=== PATIENT | male | born 1980 | race Caucasian/White ===

== ENCOUNTER 2022-09-26 14:12 | Inpatient (IN) | payer OTHER ==
[~2022-09-26] VITALS: Ht 172.7 cm; Wt 81.2 kg
--- NOTE | 2022-09-26 15:30 | NUR ---
MS RN ADMITTING NOTES ADMITTED THIS 42 YO MALE TO UNIT AT 1510 VIA GURNEY, DIRECT ADMIT FROM [facility], WITH A DX OF OSTEOMYELITIS. PT IS AOX4 AND ABLE TO MAKE NEEDS FULLY KNOWN. ORIENTED TO ROOM AND STAFF. VS TAKEN, STABLE, AFEBRILE, RECORDED. PT ON ROOM AIR, TOLERATING WELL, WITH NO ACUTE RESPIRATORY DISTRESS NOTED. IV ACCESS NOTED ON LEFT HAND G#20 SALINE LOCKED, PATENT, INTACT, AND FLUSHING WELL. LUNGS CLEAR ON AUSCULTATION BILATERALLY,. ABDOMEN SOFT, NON-TENDER AND NON-DISTENDED WITH + BOWEL SOUNDS ON ALL FOUR QUADRANTS, PHOTOS OF SKIN ISSUES TAKEN AND FILED IN THE CHART- WOUND CONSULT AND WELLNESS PROGRAM MANAGER CONSULT STARTED. DENIES PAIN NOR DISCOMFORT AT THIS MOMENT. BELONGINGS ALL ACCOUNTED FOR AND FORM SIGNED. SAFETY MEASURES IN PLACE: BED IN LOWEST AND LOCKED POSITION, SIDE RAILS UP X2, TRAY TABLE AND CALL LIGHT WITHIN EASY REACH. WILL CONTINUE TO MONITOR PT.,
[2022-09-26] MEDS ORDERED: BUPR1FIL3 SL (15:38)
[2022-09-26] MEDS ORDERED: NALO4SPR (15:38)
[2022-09-26] MEDS ORDERED: LORA-259 PO (15:58)
[2022-09-26] MEDS ORDERED: GABA600T12 PO (15:58)
[2022-09-26] MEDS ORDERED: NAPR-1009 PO (15:58)
[2022-09-26 16:00] VITALS: BP 124/73
[2022-09-26] MEDS ORDERED: MAGNESIUM HYDROXIDE 30 ML UDC PO PRN (16:00)
[2022-09-26] MEDS ORDERED: Z GUARD REMEDY 4 OZ OINT TP PRN (16:00)
[2022-09-26] MEDS ORDERED: MAG HYDROX/AL HYDROX/SIMETH 30 ML UDC PO PRN (16:00)
[2022-09-26] MEDS ORDERED: ACETAMINOPHEN 325 MG TABLET PO PRN (16:00)
[2022-09-26] MEDS ORDERED: NALOXONE HCL 4 MG SPRAY NS PRN (16:00)
[2022-09-26] MEDS ORDERED: DEXTROSE 50%-WATER 50 ML DISP.SYRIN IV PRN (16:00)
[2022-09-26] MEDS ORDERED: ONDANSETRON HCL/PF 4 MG/2 ML VIAL IVP PRN (16:00)
[2022-09-26] MEDS: INSULIN REGULAR, HUMAN 100 UNIT/ML 3 ML VIAL SQ PRN (17:20)
[2022-09-26] MEDS: BLOOD SUGAR DIAGNOSTIC 1 EACH STRIP VI SCH ×2 (17:20→22:00)
[2022-09-26] MEDS ORDERED: OXYC-128 PO (17:27)
[2022-09-26] MEDS ORDERED: MELA5TAB PO (17:27)
[2022-09-26] MEDS ORDERED: THIA100T74 PO (17:27)
[2022-09-26] MEDS ORDERED: BISA5TAB10 PO (17:27)
[2022-09-26] MEDS ORDERED: CYCL5TAB PO (17:27)
[2022-09-26] MEDS ORDERED: FOLI0.4T6 PO (17:27)
[2022-09-26] MEDS ORDERED: ACET-868 PO (17:27)
[2022-09-26] MEDS ORDERED: MULT-447 PO (17:27)
[2022-09-26] MEDS ORDERED: DOCU-141 PO (17:27)
[2022-09-26] MEDS ORDERED: LIDO30AD10 TP (17:27)
[2022-09-26] MEDS ORDERED: ONDA4TAB5 PO (17:27)
[2022-09-26] MEDS ORDERED: MORP15TA PO (17:27)
--- NOTE | 2022-09-26 19:15 | NUR ---
MS RN CLOSING NOTES PATIENT IN BED, ASLEEP, EASILY AWAKEN, PATIENT DENIED PAIN OR DISCOMFORT, ON ROOM AIR BREATHING WITHOUT ANY DIFFICULTY. STILL WITH THE SAME IV ACCESS. DUE MEDS GIVEN, ALL NEEDS MET. SAFETY MEASURES MAINTAINED: BED IN LOWEST AND LOCKED POSITION, SIDE RAILS X2, TRAY TABLE AND CALL LIGHT WITHIN EASY REACH. WILL ENDORSE TO TECHNICAL BUSINESS SYSTEMS ANALYST NURSE.
--- NOTE | 2022-09-26 19:41 | NUR ---
MS RN OPENING NOTES: RECEIVED PATIENT SLEEP IN BED COMFORTABLY, AROUSABLE TO VERBAL STIMULI, BED IN LOW POSITION CALL LIGHTS WITHIN REACH, NO COMPLAIN OF PAIN AND DISCOMFORT AT THIS TIME, ON ROOM AIR SATURATING WELL, PATIENT IS A/O X4 ABLE TO MAKE NEEDS KNOWN, ON BED REST, IV LINE ON LEFT HAND#20SL, PATIENT KEPT CLEAN AND DRY ALL NEEDS MET WILL CONTINUE TO MONITOR.
[2022-09-26 20:00] VITALS: BP 130/75
[2022-09-26 20:17] VITALS: BP 130/75
[2022-09-26] MEDS: HYDROCODONE/APAP 5/325MG TABLET PO PRN (20:36)
--- NOTE | 2022-09-26 23:14 | NUR ---
RN NOTES: PATIENT REFUSED BLOOD SUGAR CHECK EXPLAIN RISK AND BENEFITS, PER PATIENT STATED "I AM NOT DIABETIC NO" PATIENT STILL REFUSED, WILL CONTINUE TO MONITOR.
[2022-09-27] MEDS: HYDROCODONE/APAP 5/325MG TABLET PO PRN ×4 (00:37→21:21)
--- NOTE | 2022-09-27 06:16 | NUR ---
MS RN CLOSING NOTES: PATIENT SLEEP IN BED COMFORTABLY, AROUSABLE TO VERBAL STIMULI, BED IN LOW POSITION CALL LIGHTS WITHIN REACH, NO COMPLAIN OF PAIN AND DISCOMFORT AT THIS TIME, ON ROOM AIR SATURATING WELL, PATIENT IS A/OX4 AMBULATORY FROM BED TO WHEEL CHAIR, AND ABLE TO MAKE NEEDS KNOWN, PATIENT KEPT CLEAN AND DRY ALL NEEDS MET ENDORSE TO INCOMING SHIFT.
[2022-09-27] MEDS: BLOOD SUGAR DIAGNOSTIC 1 EACH STRIP VI SCH ×4 (06:34→22:04)
--- NOTE | 2022-09-27 06:34 | NUR ---
RN NOTES; BLOOD SUGAR-96 NO INSULIN GIVEN PER SLIDING SCALE,
[2022-09-27 07:02] LABS: BASOPHILS # (AUTO) 0.1 K/uL (0.0-0.2); BASOPHILS % (AUTO) 1.7 % (0.0-2.0); EOSINOPHILS % (AUTO) 7.8 % (0.0-6.0); HEMATOCRIT 40 % (39-51); HEMOGLOBIN 13.5 g/dL (13.5-17.5); LYMPHOCYTES # (AUTO) 2.3 K/uL (0.8-4.8); LYMPHOCYTES % (AUTO) 44.8 % (20.0-44.0); MEAN CORPUSCULAR HGB CONC 34 g/dl (31.0-36.0); MEAN CORPUSCULAR VOLUME 88 fL (80-96); MONOCYTES # (AUTO) 0.5 K/uL (0.1-1.30); MONOCYTES % (AUTO) 9.2 % (2.0-12.0); NEUTROPHILS # (AUTO) 1.9 K/uL (1.8-8.9); NEUTROPHILS % (AUTO) 36.5 % (43.0-81.0); PLATELET COUNT (AUTO) 306 K/uL (150-450); RED BLOOD CELL COUNT(AUTO) 4.56 MIL/uL (4.5-6.0); WHITE BLOOD COUNT (AUTO) 5.2 K/uL (4.3-11.0)
[2022-09-27 07:20] LABS: CALCIUM, SERUM 8.7 mg/dL (8.5-10.1); CREATININE 0.6 mg/dL (0.6-1.3); MAGNESIUM 2.1 mg/dL (1.8-2.4); PHOSPHORUS 4.1 mg/dL (2.5-4.9); POTASSIUM 3.8 mmol/L (3.5-5.1)
--- NOTE | 2022-09-27 07:30 | NUR ---
MS RN OPENING NOTE RECEIVED PATIENT ASLEEP IN BED. PT A/O x4, ABLE TO MAKE NEEDS KNOWN. ON ROOM AIR, NO S/S OF RESPIRATORY DISTRESS. IV ACCESS ON L HAND 20 G SALINE LOCK. PT IS ON BRP, USES URINAL. NO S/S OF PAIN OR DISCOMFORT. SAFETY MEASURES IN PLACE: BED LOCKED AND IN LOWEST POSITION, HOB ELEVATED, SIDE RAILS UP x2, CALL LIGHT WITHIN REACH. WILL CONTINUE TO MONITOR.
--- NOTE | 2022-09-27 07:50 | NUR ---
WOUND CARE CONSULT: PT PRESENTS WITH LARGE AREA OF SCARRING TO LEFT SIDE OF BACK AND FLANK AREA WELL SWELLING WITH DRY ESCHAR TO RT HEEL AND SUTURES TO RT ANKLE AREA, PRESENT ON ADMISSION. DR CALLE CALLED FOR DPM CONSULT. DISCUSSED SKIN PROTECTION WITH NURSING STAFF. MD IN AGREEMENT WITH PLAN OF CARE.
[2022-09-27 08:00] VITALS: BP 129/83
[2022-09-27] MEDS ORDERED: VANCOMYCIN 1.25 GM in IV D5W 250 ML IV ONE (08:00)
--- NOTE | 2022-09-27 08:05 | NUR ---
RN MS NOTES DR. CALLE AT BEDSIDE, EXAMINING PT.
[2022-09-27] MEDS: ENOXAPARIN SODIUM 40 MG/0.4 ML DISP.SYRIN SQ SCH (08:39)
[2022-09-27] MEDS ORDERED: Medication Not On Formulary EA (Buprenorphine Hcl/Naloxone Hcl (Suboxone 8 Mg-2 Mg Sl Fi SL SCH (09:00)
[2022-09-27] MEDS ORDERED: BISACODYL (5 MG) 5 MG TABLET.DR PO PRN (09:30)
[2022-09-27] MEDS ORDERED: LORAZEPAM 1 MG TABLET PO PRN (09:30)
[2022-09-27] MEDS ORDERED: LIDOCAINE 5% (PATCH) 1 EA PATCH TP PRN (09:30)
[2022-09-27] MEDS ORDERED: ONDANSETRON 4 MG TAB.RAPDIS PO PRN (10:00)
[2022-09-27] MEDS ORDERED: CYCLOBENZAPRINE 10 MG TABLET PO PRN (10:00)
--- NOTE | 2022-09-27 10:36 | NUR ---
RN NOTES PT REQUESTED TO SHOWER. DR. MACIAS INFORMED. PER LINDA MEIER TO SHOWER.
[2022-09-27] MEDS: GLUCERNA SHAKE 237 ML CAN PO SCH (10:46)
[2022-09-27] MEDS: PROSOURCE / PROSTAT (PYXIS) 30 ML UDC GT SCH ×2 (10:46→16:10)
--- NOTE | 2022-09-27 11:00 | NUR ---
SS Consult: SSS consult requested for homelessness and Drug dependence referrals. The pt. is a 42-year-old male pt. who was admitted to Med Surg due to right heel pain per EMR. Upon SS consult, the pt. is Alert & Oriented x 4 and makes good eye contact. The pt. appears unkempt. Pt. has euthymic mood & affect. Pt.s speech is clear and thought process is WNL. Pt. remained calm & cooperative throughout interview. Pt. denies SI/HI and states denies hallucinations. SW explored pt.s living situation. Per pt. he is has been experiencing homelessness for the past 10 -15 years. SW provided pt. with [place] [facility] resources and referred him to [facility] for reh[facility]. Pt. stated he will follow up with resources. SW explored pt.s drug & ETOH use. Pt. states he uses all kinds of drugs and refused to go into detail regarding frequency and amount. SW provided pt. with drug and alcohol dependence referrals and pt. accepted them. The pt. stated he uses a wheelchair and is independent with all his ADLs. Plan: SW provided pt. with the following homeless and addiction resources and pt. accepted them. Pt. signed homeless waiver and it was placed in the pt.s chart. SW provided pt. with bus TAP card and bus route to [facility] and pt. accepted it. [facility] list : [facility]; [place] Adult WSP site; [place] Adult WSP site; and [facility] Adult WSP site; instruction to call 211 for availability. Year-round shelters: [facility] [address] [place] [address] ; [facility] [address] [place] [address]; [facility] Nzuivnh9744 [facility]. [facility] [address] Hygiene: [facility]: [address] ; [facility] [address] [facility] ; [facility] [address] . Food Resources: [facility] [facility] at [facility]- [address] [place]; Meet Each Need with Dignity ([facility]) [address] Do; [facility] [address] [facility]; [facility] [address] [facility]. Mental Health resources provided: [facility] [address] [place] [address] ; [facility] [address] [facility] [address], [place], [place] [id number] ; [facility] [address] [facility] [place], [place] [id number] ; [facility] [place], [place] [phone] Healthcare Clinics: [facility] [address] [facility], [address] [place]. [place] ; [facility] [address] [facility] [address] [place] [address]; [facility] [place] [address] [facility] [place] [address] [phone] Counseling--Outpatient [facility] [address] [facility], [address] [place], [place] [address] (Specializes in in-depth psychotherapy for emotional distress: anxiety, depression, interpersonal conflicts, life transitions, childhood abuse) [facility] [address] [place] [address] (Assist with solving problem marital difficulties, separation & divorce, aging parents, & grief, chronic & terminal illness) [facility] [address] [place] [address] (Deal with loss & grief, anxiety, marital difficulties) Homebound/Mental Health Services [address] [place], [place] [address] (Provide in-home mental services to people who are incapable of leaving their homes) [facility] Senior Service/Resource Center [address] [place] [address] [facility] [address] [place] [address] PSYCHIATRIC OUTPATIENT SERVICES [facility] Partial Hospitalization and Intensive Outpatient Program (Managed Care and [place] Only)[address] [facility] [phone] [facility] Partial Hospitalization and Outpatient [address] [place], [place] [phone] [facility] [place] Hbx[address] [facility]. [address] [place], [place] [phone] [facility] Partial Hospitalization and Outpatient Ilewuzb65892 [facility], [phone] Substance Abuse resources provided included: [facility] Substance Abuse Self-Helpline ([facility]) ; [facility] [address] [facility]. [place] [phone] ; [facility] [address] [facility] [address] ; [facility] Rehabilitation Program [address] [address] ; [facility] [address] [facility] [address] ; [facility] Treatment [facility] [address] [facility] [address] ; [facility] [place] [address] [facility] [address] ; [facility] Substance Abuse Helpline([facility] ; [facility] ; [facility] [place]; [facility] [place]; [facility] [place]; [facility] [place]; [facility]; [facility]; [facility]. [place]; Alcoholics Anonymous -[facility]; Do-Zavr-[place] ; Marijuana Anonymous -[facility]; Narcotics Anonymous www.na.org;
[2022-09-27] MEDS: GABAPENTIN 300 MG CAPSULE PO SCH ×3 (12:17→20:44)
--- NOTE | 2022-09-27 14:50 | NUR ---
RN MS NOTES PT ON SUBOXONE, PER PT, HE ALREADY EXHAUSTED HIS CURRENT SUPPLY, PHARMACY DOES NOT CARRY MED, DR. MACIAS INFORMED, ORDERED TO CANCEL MED.
[2022-09-27] MEDS: DOCUSATE SODIUM 100 MG CAPSULE PO SCH (16:10)
[2022-09-27] MEDS: NAPROXEN 500 MG TABLET PO SCH (16:10)
[2022-09-27] MEDS: VANCOMYCIN 1 GM in IV D5W 250 ML IV SCH (16:23)
--- NOTE | 2022-09-27 18:34 | NUR ---
MS RN CLOSING NOTES PATIENT AWAKE IN BED, A/Ox4 ABLE TO MAKE NEEDS KNOWN. STABLE ON ROOM AIR, NO S/S OF RESPIRATORY DISTRESS. IV ACCESS ON LEFT HAND 20G SL. PAIN UNDER CONTROL W/ PRN MEDS. SAFETY MEASURES MAINTAINED: BED LOCKED AND IN LOWEST POSITION, HOB ELEVATED, SIDE RAILS UPx2, CALL LIGHT WITHIN REACH. WILL ENDORSE TO NEXT SHIFT.
--- NOTE | 2022-09-27 19:58 | NUR ---
MS JAN INITIAL NOTES Received report from am nurse and checked the patient , I saw him in bed lying down sleeping but arouse to his name and touch. Denies any pain or any discomfort. Heplock gauge 20 patent and intact. kept him warm and comfortable at all times. Patient able to use wheel chair and able to needs know. Bed in low with side rails X2 up and lock in position . Place call light at each. will continue monitoring.
[2022-09-27 20:00] VITALS: BP 136/98
--- NOTE | 2022-09-27 21:27 | NUR ---
ms jeet notes patient woke up and complained of pain on his hand 01/13 , [place] tablet given po as ordered. will continue monitoring.
[2022-09-27] MEDS: *INSULIN REGULAR(HUMULIN R)HUM 100 UNIT/ML VIAL SQ PRN (22:12)
--- NOTE | 2022-09-27 22:15 | NUR ---
MS JAN NOTES BLOOD SUGAR CHECKED DONE 132, 2 UNITS OF INSULIN GIVEN DINA SQ ORDERED. NO SIGNS OF HYPO/HYPER GLYCEMIA NOTED. SNACKS ALSO SERVED. KEPT HIM WARM AND COMFORTABLE AT ALL TIMES. PLACE CALL LIGHT AT REACH WILL CONTINUE MONITORING.
--- NOTE | 2022-09-28 | NUR ---
ms jeet notes pt sleeping comfortably in bed without any distress or any discomfort noted will continue monitoring. place call light at reach.
[2022-09-28] MEDS: VANCOMYCIN 1 GM in IV D5W 250 ML IV SCH ×2 (00:43→09:14)
[2022-09-28] MEDS: INSULIN REGULAR, HUMAN 100 UNIT/ML 3 ML VIAL SQ PRN (06:30)
[2022-09-28] MEDS: BLOOD SUGAR DIAGNOSTIC 1 EACH STRIP VI SCH ×2 (06:30→12:04)
[2022-09-28] MEDS: HYDROCODONE/APAP 5/325MG TABLET PO PRN ×3 (06:33→15:13)
--- NOTE | 2022-09-28 06:55 | NUR ---
MS CLINICAL INFORMATICS MANAGER CLOSING NOTES PT BACK TO REST AFTER [place] TABLET GIVEN PO FOR GENERALIZED PAIN. BLOOD SUGAR CHECKED DONE 84 NO INSULIN DUE AT THIS TIME. NO SIGNS OF HYPO GLYCEMIA NOTED. ALL DUE MEDS GIVEN AND ALL NEEDS MET. STILL WAITING FOR BLOOD DRAW PLUS THE VANCO TROUGH S ORDERED. WILL ENDORSE TO AM NURSE FOR CONTINUITY OF CARE.
--- NOTE | 2022-09-28 07:31 | NUR ---
MEDSURSoumya RN OPENING NOTE RECEIVED PATIENT ASLEEP IN BED. PT A/O x4, ABLE TO MAKE NEEDS KNOWN. ON ROOM AIR, NO S/S OF RESPIRATORY DISTRESS. IV ACCESS ON L HAND 20 G SALINE LOCK. ON IVATB WITH NO A/R NOTED. PT IS ON BRP, USES URINAL. NO S/S OF PAIN OR DISCOMFORT. SAFETY MEASURES IN PLACE: BED LOCKED AND IN LOWEST POSITION, HOB ELEVATED, SIDE RAILS UP x2, CALL LIGHT WITHIN REACH. WILL CONTINUE TO MONITOR.
[2022-09-28 08:00] VITALS: BP 132/73
[2022-09-28] MEDS ORDERED: FOLIC ACID 1 MG TABLET PO SCH (09:00)
[2022-09-28] MEDS ORDERED: THIAMINE HCL 100 MG TABLET PO SCH (09:00)
[2022-09-28] MEDS ORDERED: MULTIVIT W/MINERALS 1 TAB TABLET PO SCH (09:00)
[2022-09-28] MEDS: ENOXAPARIN SODIUM 40 MG/0.4 ML DISP.SYRIN SQ SCH (09:16)
[2022-09-28] MEDS: NAPROXEN 500 MG TABLET PO SCH (09:18)
[2022-09-28] MEDS: GLUCERNA SHAKE 237 ML CAN PO SCH (09:19)
[2022-09-28] MEDS: DOCUSATE SODIUM 100 MG CAPSULE PO SCH (09:19)
[2022-09-28] MEDS: GABAPENTIN 300 MG CAPSULE PO SCH ×2 (09:19→12:08)
[2022-09-28] MEDS: PROSOURCE / PROSTAT (PYXIS) 30 ML UDC GT SCH (09:20)
[2022-09-28] MEDS ORDERED: OXYC-128 PO (09:37)
[2022-09-28] MEDS: *INSULIN REGULAR(HUMULIN R)HUM 100 UNIT/ML VIAL SQ PRN (12:07)
--- NOTE | 2022-09-28 15:30 | NUR ---
DISCHARGE NOTES: RECEIVED ORDER FOR D/C. PATIENT IS AAOX4, ABLE TO MAKE NEEDS KNOWN. STABLE ON ROOM AIR. NO SOB, NO S/S DISTRESS NOTED. D/C INSTRUCTION GIVEN TO PT., VERBALIZE UNDERSTANDING. ALL BELONGINGS ACCOUNTED FOR. BELONGINGS SHEET SIGNED. HOME MED AIRCRAFT MOTOR MECHANIC AT THE PHARMACY AND GIVEN TO PT. PHOTOS OF SKIN ISSUES TAKEN AND PLACED IN CHART. IV ACCESS REMOVED. CATHETER TIP INTACT. PRESSURE DRESSING APPLIED. ID BAND REMOVED. EXIT CARE FOLDER GIVEN TO PT. PATIENT LEFT UNIT IN STABLE CONDITION.
== END 2022-09-28 15:25 | disposition home or self-care (01) | DRG 48 ==
LOC: MED 15:17
PROVIDERS: ADMIT Internal Medicine; ATTEND Internal Medicine
DX: G62.9 Polyneuropathy, unspecified (principal); F15.10 Other stimulant abuse, uncomplicated; M54.9 Dorsalgia, unspecified; G89.29 Other chronic pain; Z59.00 Homelessness unspecified; Z53.29 Procedure and treatment not carried out because of patient's decision for other reasons; Z87.81 Personal history of (healed) traumatic fracture
CPT/HCPCS: 36415; 80048-TC; 80202-TC; 82962-TC; 83735-TC; 84100-TC; 85025-TC; 87081-TC; A4223; G0378; J1650; J1815; J3370; J3490; J7050; J7060